=== PATIENT | male | born 1990 | race American Indian/Alaskan Native ===

== ENCOUNTER 2019-03-03 23:15 | Emergency (ER) | payer MEDICAID ==
[2019-03-04] MEDS ORDERED: KETOROLAC 30 MG/1 ML INJ IM ONE (02:00)
[2019-03-04] MEDS ORDERED: dexAMETHasone 20 MG/5 ML VIAL IM ONE (02:00)
[2019-03-04] MEDS ORDERED: CYCLOBENZAPRINE 10 MG TAB PO ONE (02:01)
[2019-03-04 02:16] LABS: Bacteria,Urine 1+ /HPF (Negative); Bilirubin,Urine NEG (Negative); Blood,Urine NEG (Negative); Color,Urine Yellow (Yellow); Mucus,Urine 2+ /HPF; Protein,Urine <15 mg/dL mg/dL (Negative); Urobilinogen,Urine < 2.0 mg/dL (<2.0)
--- NOTE | 2019-03-04 02:31 | Emergency Department Report ---
ED General Adult HPI - General Chief complaint: Urogenital-Male Stated complaint: PENILE PAIN Source: patient Mode of arrival: Ambulatory Limitations: No Limitations - History of Present Illness Initial comments: Patient is a 28-year-old -[place] male with no past medical history who presents with a ED with [place] of acute onset persistent right hip pain that radiates buttocks last 2 days worse in the last 12 hours. Patient states that he had suspected that he may have been having an active herpes infection after having unprotected sexual intercourse with a female with a history of latent genital herpes. Patient denies penile discharge, dysuria, urinary frequency and urgency, hematuria, testicular pain, low back pain, dizziness, fever, chills, diffuse body aches and pains, lesions in his genital area or headache, fever and chills. MD Complaint: right hip pain -: Sudden, days(s) (2) Location: lower extremity (right hip) Radiation: extremity (Buttocks) Severity scale (0 -10): 7 Quality: aching, sharp Consistency: constant Improves with: none Worsens with: none Associated Symptoms: denies other symptoms. denies: chest pain, cough, fever/chills, headaches, loss of appetite, malaise, nausea/vomiting, shortness of breath, syncope Treatments Prior to Arrival: NSAID - Related Data Previous Rx's Medication Instructions Recorded Last Taken Type HYDROcodone/APAP 7.5-325 [Floyd 1 each PO Q8HR PRN #10 tablet 10/24/13 Unknown Rx 7.5-325 mg TAB] Tobramycin [Tobrex 0.3%] 1 - 2 drop OP Q4HR 14 Days drops 10/24/13 Unknown Rx Cyclobenzaprine [Flexeril] 10 mg PO Q8H PRN #21 tablet 03/04/19 Unknown Rx Naproxen 500 mg PO Q12H PRN #24 tablet 03/04/19 Unknown Rx predniSONE [Deltasone] 40 mg PO QDAY #10 tab 03/04/19 Unknown Rx Allergies Allergy/AdvReac Type Severity Reaction Status Date / Time No Known Allergies Allergy Verified 10/24/13 23:15 ED Review of Systems ROS: Stated complaint: PENILE PAIN Other details as noted in HPI Constitutional: denies: chills, fever Eyes: denies: eye pain, eye discharge, vision change ENT: denies: ear pain, throat pain Respiratory: denies: cough, shortness of breath, wheezing Cardiovascular: denies: chest pain, palpitations Endocrine: no symptoms reported Gastrointestinal: denies: abdominal pain, nausea, diarrhea Genitourinary: denies: urgency, dysuria Musculoskeletal: arthralgia (right hip), myalgia. denies: back pain, joint swelling Skin: denies: rash, lesions Neurological: denies: headache, weakness, paresthesias Psychiatric: denies: anxiety, depression Hematological/Lymphatic: denies: easy bleeding, easy bruising ED Past Medical Hx - Past Medical History Previous Medical History?: No Hx Hypertension: No Hx CVA: No Hx Congestive Heart Failure: No Hx Diabetes: No Hx Pulmonary Embolism: No Hx GERD: No Hx Liver Disease: No Hx Arthritis: No Hx Seizures: No Hx Kidney Stones: No Hx Asthma: No Hx COPD: No Hx Tuberculosis: No Hx Dementia: No Hx HIV: No - Surgical History Past Surgical History?: No Hx Coronary Stent: No Hx Open Heart Surgery: No Hx Pacemaker: No Hx Internal Defibrillator: No Hx Appendectomy: No - Social History Smoking Status: Never Smoker Substance Use Type: None - Medications Home Medications: Home Medications Medication Instructions Recorded Confirmed Last Taken Type HYDROcodone/APAP 7.5-325 [Floyd 1 each PO Q8HR PRN #10 tablet 10/24/13 Unknown Rx 7.5-325 mg TAB] Tobramycin [Tobrex 0.3%] 1 - 2 drop OP Q4HR 14 Days drops 10/24/13 Unknown Rx Cyclobenzaprine [Flexeril] 10 mg PO Q8H PRN #21 tablet 03/04/19 Unknown Rx Naproxen 500 mg PO Q12H PRN #24 tablet 03/04/19 Unknown Rx predniSONE [Deltasone] 40 mg PO QDAY #10 tab 03/04/19 Unknown Rx ED Physical Exam - General Limitations: No Limitations General appearance: alert, in no apparent distress - Head Head exam: Present: atraumatic, normocephalic, normal inspection - Eye Eye exam: Present: normal appearance, PERRL, EOMI Pupils: Present: normal accommodation - ENT ENT exam: Present: normal exam, normal orophraynx, mucous membranes moist, TM's normal bilaterally - Neck Neck exam: Present: normal inspection, full ROM - Respiratory Respiratory exam: Present: normal lung sounds bilaterally. Absent: respiratory distress, wheezes, rales, stridor, chest wall tenderness, accessory muscle use - Cardiovascular Cardiovascular Exam: Present: regular rate, normal rhythm, normal heart sounds. Absent: systolic murmur, diastolic murmur, rubs, gallop - GI/Abdominal GI/Abdominal exam: Present: soft, normal bowel sounds. Absent: tenderness, guarding, hyperactive bowel sounds, organomegaly, mass, pulsatile mass - Rectal Rectal exam: Present: deferred - Extremities Exam Extremities exam: Present: normal inspection, full ROM, normal capillary refill - Back Exam Back exam: Present: normal inspection, full ROM. Absent: tenderness, CVA tende rness (L), muscle spasm, paraspinal tenderness, vertebral tenderness - Neurological Exam Neurological exam: Present: alert, oriented X3, CN II-XII intact, normal gait, reflexes normal - Psychiatric Psychiatric exam: Present: normal affect, normal mood, anxious - Skin Skin exam: Present: warm, dry, intact, normal color. Absent: rash ED Course Vital Signs 03/03/19 23:17 Temperature 98.3 F Pulse Rate 98 H Respiratory 18 Rate Blood Pressure 117/85 O2 Sat by Pulse 100 Oximetry - Reevaluation(s) Reevaluation #1: 03/04/19 02:28 This is a 28-year-old male who presents to the ED with complaint of nontraumatic right hip pain. Patient presented to the ED wanting to be tested for genital herpes after having sexual intercourse with a female who had latent genital herpes with no active disease. Urinalysis is unremarkable. Patient was treated for pain as his symptoms are likely due to bursitis of left hip or muscle strain or degenerative joint disease. Patient was discharged home on medications for pain and advised follow-up with his primary care physician in 7- 10 days for reevaluation or return to the ED immediately if symptoms get worse. ED Medical Decision Making - Medical Decision Making This is a 28-year-old male who presents to the ED with complaint of nontraumatic right hip pain. Patient presented to the ED wanting to be tested for genital herpes after having sexual intercourse with a female who had latent genital herpes with no active disease. Urinalysis is unremarkable. Patient was treated for pain as his symptoms are likely due to bursitis of left hip or muscle strain or degenerative joint disease. Patient was discharged home on medications for pain and advised follow-up with his primary care physician in 7- 10 days for reevaluation or return to the ED immediately if symptoms get worse. - Differential Diagnosis Bursitis of right hip; Muscle strain; Muscle spasm; kidney stones Critical care attestation.: If time is entered above; I have spent that time in minutes in the direct care of this critically ill patient, excluding procedure time. ED Disposition Clinical Impression: Strain of muscle of right hip Qualifiers: Encounter type: initial encounter Qualified Code(s): S76.011A - Strain of muscle, fascia and tendon of right hip, initial encounter Bursitis of right hip Qualifiers: Hip bursitis location: unspecified Qualified Code(s): M70.71 - Other bursitis of hip, right hip Degenerative joint disease of right hip Qualifiers: Osteoarthritis type: unspecified Qualified Code(s): M16.11 - Unilateral primary osteoarthritis, right hip Disposition: TO HOME OR SELFCARE Is pt being admited?: No Does the pt Need Aspirin: No Condition: Stable Instructions: Muscle Strain (ED), Hip Bursitis (ED), Tendinitis (ED), Musculoskeletal Pain (ED) Additional Instructions: Take medications as needed for pain with food, drink plenty of fluids and follow up with your primary care physician in 7-10 days for reevaluation. Return to the ED immediately if symptoms get worse. Prescriptions: predniSONE [Deltasone] 40 mg PO QDAY #10 tab Cyclobenzaprine [Flexeril] 10 mg PO Q8H PRN #21 tablet PRN Reason: Muscle Spasm Naproxen 500 mg PO Q12H PRN #24 tablet PRN Reason: Pain , Severe (7-10) Referrals: PRIMARY CARE, [Primary Care Provider] - 3-5 Days Time of Disposition: 02:33 Print Language: BENGALI
[2019-03-04 03:25] VITALS: BP 142/78
== END 2019-03-04 03:15 | disposition home or self-care (01) ==
LOC: ED 23:15
DX: S76.011A Strain of muscle, fascia and tendon of right hip, initial encounter (principal); M70.71 Other bursitis of hip, right hip; M16.11 Unilateral primary osteoarthritis, right hip; Z79.899 Other long term (current) drug therapy; X58.XXXA Exposure to other specified factors, initial encounter; Y93.89 Activity, other specified; Y92.89 Other specified places as the place of occurrence of the external cause; Y99.8 Other external cause status
CPT/HCPCS: 81001; 96372; 99283; J1100; J1885